=== PATIENT | female | born 1950 | race African-American/Black ===

== ENCOUNTER 2017-12-05 15:25 | Observation (INO) | payer MEDICARE, OTHER ==
[2017-12-05] MEDS ORDERED: NITROGLYCERIN OINT 1 INCH/GM PACKET TOPICAL STA (15:37)
[2017-12-05] MEDS ORDERED: ASPIRIN 81 MG PO STA (15:37)
--- NOTE | 2017-12-05 15:40 | ED ---
General Adult HPI - General Chief complaint: Chest Pain Stated complaint: Chest Pain Time Seen by Provider: 12/05/17 15:29 Source: patient, EMS, RN notes reviewed Mode of arrival: EMS Limitations: no limitations - History of Present Illness Initial comments: Patient is a pleasant 67-year-old female presenting to the emergency Department with chest discomfort. Symptoms have been present the past couple of days. Patient has a difficult time describing discomfort. Discomfort is left chest. Patient has been coughing some. Patient denies any dyspnea to me despite being asked more than once. No nausea. No diaphoresis. No history of similar symptoms previously. Patient is currently at [place] for history of cocaine use. Patient has used cocaine intermittently over 30 years. - Related Data Home Medications Medication Instructions Recorded Confirmed Acetaminophen [Tylenol] 650 mg PO Q4H PRN 12/05/17 12/05/17 Aspirin EC [Ecotrin Low Dose] 81 mg PO DAILY@0600 12/05/17 12/05/17 Cetirizine HCl [Zyrtec] 10 mg PO DAILY@0600 12/05/17 12/05/17 Citalopram Hydrobromide [CeleXA] 40 mg PO DAILY@0600 12/05/17 12/05/17 Gabapentin [Neurontin] 300 mg PO TID@,12/05/17 12/05/17 Ibuprofen [Motrin] 600 mg PO Q6HR PRN 12/05/17 12/05/17 Magnesium Hydroxide [Milk of 2,400 mg PO DAILY PRN 12/05/17 12/05/17 Magnesia] Metoprolol Succinate [Toprol XL] 25 mg PO DAILY@0600 12/05/17 12/05/17 OLANZapine [ZyPREXA] 15 mg PO HS@219912/05/17 12/05/17 Potassium Chloride [K-Tab ER] 20 meq PO DAILY@0600 12/05/17 12/05/17 Simvastatin 40 mg PO HS@22012/05/17 12/05/17 Spironolactone-Hctz 25-25Mg 1 tab PO DAILY PRN 12/05/17 12/05/17 [Aldactazide 25-25Mg] busPIRone HCl [Buspar] 10 mg PO TID PRN 12/05/17 12/05/17 guaiFENesin [guaiFENesin Oral 200 mg PO Q4H PRN 12/05/17 12/05/17 Solution] traZODone HCL 50 - 100 mg PO HS 12/05/17 12/05/17 Allergies Allergy/AdvReac Type Severity Reaction Status Date / Time No Known Allergies Allergy Unverified 12/05/17 15:35 Review of Systems ROS Statement: Those systems with pertinent positive or pertinent negative responses have been documented in the HPI. ROS Other: All systems not noted in ROS Statement are negative. Constitutional: Denies: fever Eyes: Denies: eye pain ENT: Denies: ear pain Respiratory: Reports: cough. Denies: dyspnea Cardiovascular: Reports: chest pain Endocrine: Denies: fatigue Gastrointestinal: Denies: abdominal pain Genitourinary: Denies: dysuria Musculoskeletal: Denies: back pain Skin: Denies: rash Neurological: Denies: weakness Past Medical History Past Medical History: COPD, Fibromyalgia, Hyperlipidemia Additional Past Medical History / Comment(s): degenerative disc disease History of Any Multi-Drug Resistant Organisms: None Reported Past Surgical History: Hysterectomy Additional Past Surgical History / Comment(s): hemerrhoidectomy Past Psychological History: Bipolar, Depression Smoking Status: Current every day smoker Past Alcohol Use History: None Reported Past Drug Use History: Cocaine, Heroin, Prescription Drug Abuse General Exam Limitations: no limitations General appearance: alert, in no apparent distress Head exam: Present: atraumatic Eye exam: Present: normal appearance, PERRL ENT exam: Present: normal oropharynx Neck exam: Present: normal inspection Respiratory exam: Present: normal lung sounds bilaterally. Absent: chest wall tenderness Cardiovascular Exam: Present: regular rate, normal rhythm Expanded Peripheral pulses: 2+: Radial (R), Radial (L), Posterior Tibialis (R), Posterior Tibialis (L) GI/Abdominal exam: Present: soft. Absent: distended, tenderness Extremities exam: Present: normal inspection. Absent: pedal edema, calf tenderness Neurological exam: Present: alert Psychiatric exam: Present: normal affect, normal mood Skin exam: Present: normal color Course Vital Signs 12/05/17 12/05/17 15:27 16:05 Temperature 99.2 F Pulse Rate 85 72 Respiratory 18 18 Rate Blood Pressure 104/55 104/55 O2 Sat by Pulse 98 98 Oximetry EKG Findings - EKG Comments: EKG Findings:: Normal sinus rhythm 75. GA 152. QRS 74. QT 372. QTC 4:15. Normal axis. Normal QRS. Nonspecific T waves. Medical Decision Making - Medical Decision Making Patient reevaluated and resting comfortably in bed. Patient updated on results and plan. Case was discussed in detail with Dr. Li, who will admit for hospital call. - Lab Data Result diagrams: 12/05/17 15:30 12/05/17 15:30 Lab Results 12/05/17 12/05/17 12/05/17 Range/Units 15:30 15:30 15:30 WBC 2.1 L (3.8-10.6) k/uL RBC 3.61 L (3.80-5.40) m/uL Hgb 11.3 L (11.4-16.0) gm/dL Hct 34.4 (34.0-46.0) % MCV 95.4 (80.0-100.0) fL MCH 31.4 (25.0-35.0) pg MCHC 32.9 (31.0-37.0) g/dL RDW 12.4 (11.5-15.5) % Plt Count 151 (150-450) k/uL Neutrophils % 45 % Lymphocytes % 39 % Monocytes % 10 % Eosinophils % 3 % Basophils % 1 % Neutrophils # 1.0 L (1.3-7.7) k/uL Lymphocytes # 0.8 L (1.0-4.8) k/uL Monocytes # 0.2 (0-1.0) k/uL Eosinophils # 0.1 (0-0.7) k/uL Basophils # 0.0 (0-0.2) k/uL PT (9.0-12.0) sec INR (<1.2) APTT (22.0-30.0) sec D-Dimer (<0.60) mg/L FEU Sodium 140 (137-145) mmol/L Potassium 4.2 (3.5-5.1) mmol/L Chloride 108 H (98-107) mmol/L Carbon Dioxide 24 (22-30) mmol/L Anion Gap 8 mmol/L BUN 22 H (7-17) mg/dL Creatinine 0.61 (0.52-1.04) mg/dL Est GFR (CKD-EPI)AfAm >90 (>60 ml/min/1.73 sqM) Est GFR (CKD-EPI)NonAf >90 (>60 ml/min/1.73 sqM) Glucose 90 (74-99) mg/dL Calcium 9.2 (8.4-10.2) mg/dL Magnesium 1.8 (1.6-2.3) mg/dL Total Bilirubin 0.1 L (0.2-1.3) mg/dL AST 20 (14-36) U/L ALT 29 (9-52) U/L Alkaline Phosphatase 55 (38-126) U/L Total Creatine Kinase 89 (30-135) U/L CK-MB (CK-2) 1.9 (0.0-2.4) ng/mL CK-MB (CK-2) Rel Index 2.1 Troponin I <0.012 (0.000-0.034) ng/mL Total Protein 6.1 L (6.3-8.2) g/dL Albumin 3.7 (3.5-5.0) g/dL 12/05/17 Range/Units 15:30 WBC (3.8-10.6) k/uL RBC (3.80-5.40) m/uL Hgb (11.4-16.0) gm/dL Hct (34.0-46.0) % MCV (80.0-100.0) fL MCH (25.0-35.0) pg MCHC (31.0-37.0) g/dL RDW (11.5-15.5) % Plt Count (150-450) k/uL Neutrophils % % Lymphocytes % % Monocytes % % Eosinophils % % Basophils % % Neutrophils # (1.3-7.7) k/uL Lymphocytes # (1.0-4.8) k/uL Monocytes # (0-1.0) k/uL Eosinophils # (0-0.7) k/uL Basophils # (0-0.2) k/uL PT 9.9 (9.0-12.0) sec INR 1.0 (<1.2) APTT 30.0 (22.0-30.0) sec D-Dimer 0.47 (<0.60) mg/L FEU Sodium (137-145) mmol/L Potassium (3.5-5.1) mmol/L Chloride (98-107) mmol/L Carbon Dioxide (22-30) mmol/L Anion Gap mmol/L BUN (7-17) mg/dL Creatinine (0.52-1.04) mg/dL Est GFR (CKD-EPI)AfAm (>60 ml/min/1.73 sqM) Est GFR (CKD-EPI)NonAf (>60 ml/min/1.73 sqM) Glucose (74-99) mg/dL Calcium (8.4-10.2) mg/dL Magnesium (1.6-2.3) mg/dL Total Bilirubin (0.2-1.3) mg/dL AST (14-36) U/L ALT (9-52) U/L Alkaline Phosphatase (38-126) U/L Total Creatine Kinase (30-135) U/L CK-MB (CK-2) (0.0-2.4) ng/mL CK-MB (CK-2) Rel Index Troponin I (0.000-0.034) ng/mL Total Protein (6.3-8.2) g/dL Albumin (3.5-5.0) g/dL - Radiology Data Radiology results: image reviewed (Chest x-ray shows no acute process) Disposition Clinical Impression: Chest pain Disposition: ADMITTED IP TO THIS [facility] Referrals: Nonstaff,Physician [Primary Care Provider] - 1-2 days Decision Time: 16:51
[2017-12-05 16:08] LABS: Basophils % (A) 1 %; Eosinophils # (A) 0.1 k/uL (0-0.7); Eosinophils % (A) 3 %; HCT 34.4 % (34.0-46.0); HGB 11.3 gm/dL (11.4-16.0); Lymphocytes # (A) 0.8 k/uL (1.0-4.8); Lymphocytes % (A) 39 %; MCH 31.4 pg (25.0-35.0); MCHC 32.9 g/dL (31.0-37.0); MCV 95.4 fL (80.0-100.0); Mean Platelet Volume 7.2; Monocytes # (A) 0.2 k/uL (0-1.0); Monocytes % (A) 10 %; Neutrophils % (A) 45 %; Platelet Count 151 k/uL (150-450); RBC 3.61 m/uL (3.80-5.40); RDW 12.4 % (11.5-15.5); WBC 2.1 k/uL (3.8-10.6)
[2017-12-05 16:22] LABS: ALT 29 U/L (9-52); AST 20 U/L (14-36); Albumin 3.7 g/dL (3.5-5.0); Alkaline Phosphatase 55 U/L (38-126); Anion Gap 8 mmol/L; Blood Urea Nitrogen 22 mg/dL (7-17); Calcium 9.2 mg/dL (8.4-10.2); Carbon Dioxide 24 mmol/L (22-30); Chloride 108 mmol/L (98-107); Glucose 90 mg/dL (74-99); Magnesium 1.8 mg/dL (1.6-2.3); Potassium 4.2 mmol/L (3.5-5.1); Sodium 140 mmol/L (137-145); Total Bilirubin 0.1 mg/dL (0.2-1.3); Total Protein 6.1 g/dL (6.3-8.2)
[2017-12-05 16:23] LABS: Creatine Kinase 89 U/L (30-135)
[2017-12-05 16:25] LABS: D-Dimer 0.47 mg/L FEU (<0.60)
[2017-12-05 16:29] LABS: Prothrombin Time 9.9 sec (9.0-12.0)
[2017-12-05 16:34] LABS: Creatine Kinase MB 1.9 ng/mL (0.0-2.4); Troponin I <0.012 ng/mL (0.000-0.034)
--- NOTE | 2017-12-05 16:38 | XR ---
EXAMINATION TYPE: XR chest 2V DATE OF EXAM: 12/05/2017 COMPARISON: NONE HISTORY: Chest pain TECHNIQUE: Frontal and lateral views of the chest are obtained. FINDINGS: There is no focal air space opacity, pleural effusion, or pneumothorax seen. The cardiac silhouette size is within normal limits. The osseous structures are intact. IMPRESSION: No acute cardiopulmonary process.
[2017-12-05] MEDS ORDERED: NITROGLYCERIN SL TABS 0.4 MG TAB SUBLINGUAL PRN (16:51)
[2017-12-05] MEDS ORDERED: ACETAMINOPHEN TAB 325 MG TAB PO PRN (17:41)
[2017-12-05] MEDS ORDERED: IBUPROFEN 400 MG TAB PO PRN (17:41)
[2017-12-05] MEDS ORDERED: NALOXONE 0.4 MG/ML 1 ML VIAL IV PRN (17:41)
[2017-12-05] MEDS ORDERED: SPIRONOLACTONE-HCTZ 25-25MG 1 EACH TAB PO PRN (17:43)
[2017-12-05] MEDS ORDERED: guaiFENesin SYRUP 100MG/5ML 200 MG/10 ML CUP PO PRN (17:43)
[2017-12-05] MEDS ORDERED: busPIRone HCl 10 MG TAB PO PRN (17:43)
[2017-12-05] MEDS ORDERED: MAGNESIUM HYDROXIDE 2,400 MG/10 ML CUP PO PRN (17:43)
--- NOTE | 2017-12-05 17:53 | P.HPIM ---
History of Present Illness H&P Date: 12/05/17 Chief Complaint: Chest pain 67-year-old female presented to the emergency department with chest discomfort , the pain occurred today when patient was resting. Pain was described as a sharp pain is located on the left side of the chest, no radiation. No associated shortness of breath, no nausea. no diaphoresis. No history of similar symptoms previously. Patient is currently at [place] for history of cocaine use. Last time used was November 22. Patient has used cocaine intermittently over 30 years. When I met with the patient she was asking to go back to [place] because she does not think that the pain would come back. I told her that we need to observe her for a little longer to make sure that the pain is not cardiac. No recent illness, no fevers or chills, no urinary symptoms, no slurred speech, blurry vision, no focal weakness or numbness. Review of Systems 12 point review of system was performed, negative except for HPI Past Medical History Past Medical History: COPD, Fibromyalgia, Hyperlipidemia Additional Past Medical History / Comment(s): degenerative disc disease History of Any Multi-Drug Resistant Organisms: None Reported Past Surgical History: Hysterectomy Additional Past Surgical History / Comment(s): hemerrhoidectomy Past Psychological History: Bipolar, Depression Smoking Status: Current every day smoker Past Alcohol Use History: None Reported Past Drug Use History: Cocaine, Heroin, Prescription Drug Abuse Medications and Allergies Home Medications Medication Instructions Recorded Confirmed Type Acetaminophen [Tylenol] 650 mg PO Q4H PRN 12/05/17 12/05/17 History Aspirin EC [Ecotrin Low Dose] 81 mg PO DAILY@0600 12/05/17 12/05/17 History Cetirizine HCl [Zyrtec] 10 mg PO DAILY@0600 12/05/17 12/05/17 History Citalopram Hydrobromide [CeleXA] 40 mg PO DAILY@0600 12/05/17 12/05/17 History Gabapentin [Neurontin] 300 mg PO TID@,15,12/05/17 12/05/17 History Ibuprofen [Motrin] 600 mg PO Q6HR PRN 12/05/17 12/05/17 History Magnesium Hydroxide [Milk of 2,400 mg PO DAILY PRN 12/05/17 12/05/17 History Magnesia] Metoprolol Succinate [Toprol XL] 25 mg PO DAILY@0600 12/05/17 12/05/17 History OLANZapine [ZyPREXA] 15 mg PO HS@0 12/05/17 12/05/17 History Potassium Chloride [K-Tab ER] 20 meq PO DAILY@0600 12/05/17 12/05/17 History Simvastatin 40 mg PO HS@2200 12/05/17 12/05/17 History Spironolactone-Hctz 25-25Mg 1 tab PO DAILY PRN 12/05/17 12/05/17 History [Aldactazide 25-25Mg] busPIRone HCl [Buspar] 10 mg PO TID PRN 12/05/17 12/05/17 History guaiFENesin [guaiFENesin Oral 200 mg PO Q4H PRN 12/05/17 12/05/17 History Solution] traZODone HCL 50 - 100 mg PO HS 12/05/17 12/05/17 History Allergies Allergy/AdvReac Type Severity Reaction Status Date / Time No Known Allergies Allergy Unverified 12/05/17 15:35 Physical Exam Vitals: Vital Signs Temp Pulse Resp BP Pulse Ox 12/05/17 17:20 98 F 72 16 114/68 96 12/05/17 16:05 72 18 110/62 98 12/05/17 15:27 99.2 F 85 18 104/55 98 Intake and Output 12/05/17 12/05/17 12/05/17 06:59 14:59 22:59 Other: Weight 61.235 kg Constitutional: No acute distress, conversant, pleasant Eyes:Anicteric sclerae, moist conjunctiva, no lid-lag, PERRLA, ENMT: Oropharynx clear, no erythema, exudates Neck: Supple, FROM, no masses, or JVD, No carotid bruits, No thyromegaly Lungs: Clear to auscultation, Clear to percussion, Normal respiratory effort, no accessory muscle use Cardiovascular: Heart regular in rate and rhythm, No murmurs, gallops, or rubs, No peripheral edema Abdominal: Soft, Nontender, no guarding, rebound or rigidity, Normoactive bowel sounds, No hepatomegaly, No splenomegaly, No palpable mass Skin: Normal temperature, tone, texture, turgor, no induration, No subcutaneous nodules, No rash, lesions, No ulcers Extremities: No digital cyanosis, No clubbing, Pedal pulses intact and symmetrical, Radial pulses intact and symmetrical, No calf tenderness Psychiatric: Alert and oriented to person, place and time, appropriate affect, intact judgement Neuro: Muscles Strength 5/5 in all 4 extremities, Sensation to light touch grossly present throughout, Cranial nerves II-XII grossly intact, no focal sensory deficits Results CBC & Chem 7: 12/05/17 15:30 12/05/17 15:30 Labs: Abnormal Lab Results - Last 24 Hours (Table) 12/05/17 12/05/17 Range/Units 15:30 15:30 WBC 2.1 L (3.8-10.6) k/uL RBC 3.61 L (3.80-5.40) m/uL Hgb 11.3 L (11.4-16.0) gm/dL Neutrophils # 1.0 L (1.3-7.7) k/uL Lymphocytes # 0.8 L (1.0-4.8) k/uL Chloride 108 H (98-107) mmol/L BUN 22 H (7-17) mg/dL Total Bilirubin 0.1 L (0.2-1.3) mg/dL Total Protein 6.1 L (6.3-8.2) g/dL Assessment and Plan Plan: Acute chest pain: Unclear etiology, can be musculoskeletal vs cardiac Tylenol and motrin for pain. Telemetry Cycle troponins Consult cardiology COPD, fibromyalgia, hyperlipidemia, degenerative disc disease, Bipolar, Depression: Chronic Continue all medications
[2017-12-05] MEDS: NITROGLYCERIN OINT 1 INCH/GM PACKET TOPICAL SCH (18:03)
[2017-12-05 18:21] VITALS: BMI 22.1
[2017-12-05] MEDS: ATORVASTATIN 20 MG TAB PO SCH (20:30)
[2017-12-05] MEDS: OLANZapine 5 MG TAB PO SCH (20:30)
[2017-12-05] MEDS: GABAPENTIN 300 MG CAP PO SCH (20:30)
[2017-12-05 22:30] LABS: Creatine Kinase 72 U/L (30-135)
[2017-12-05 22:44] LABS: Creatine Kinase MB 1.6 ng/mL (0.0-2.4); Troponin I <0.012 ng/mL (0.000-0.034)
[2017-12-06 04:34] LABS: Cholesterol 156 mg/dL (<200); HDL Cholesterol 51 mg/dL (40-60); LDL Cholesterol,Calculated 88 mg/dL (0-99); Triglycerides 86 mg/dL (<150)
[2017-12-06 04:43] LABS: Creatine Kinase 66 U/L (30-135)
[2017-12-06 04:58] LABS: Creatine Kinase MB 1.5 ng/mL (0.0-2.4); Troponin I <0.012 ng/mL (0.000-0.034)
[2017-12-06] MEDS: NITROGLYCERIN OINT 1 INCH/GM PACKET TOPICAL SCH ×4 (06:58→18:33)
[2017-12-06] MEDS: POTASSIUM CHLORIDE ER 20 MEQ TAB.ER PO SCH (07:03)
[2017-12-06] MEDS: METOPROLOL SUCCINATE (ER) 25 MG TAB.ER.24H PO SCH (07:03)
[2017-12-06] MEDS: LORATADINE 10 MG TAB PO SCH (07:05)
[2017-12-06] MEDS: GABAPENTIN 300 MG CAP PO SCH ×3 (07:05→21:47)
[2017-12-06] MEDS: CITALOPRAM HYDROBROMIDE 20 MG TAB PO SCH (07:05)
[2017-12-06] MEDS: ASPIRIN 81 MG PO SCH (07:05)
[2017-12-06] MEDS ORDERED: ASPIRIN 325 MG TAB PO SCH (09:00)
--- NOTE | 2017-12-06 12:28 | P.PN ---
Subjective Progress Note Date: 12/06/17 Principal diagnosis: CP Patient did not have any chest pain since she came in. No shortness of breath. Objective - Vital Signs Vital signs: Vital Signs Temp 97.8 F 12/06/17 08:00 Pulse 73 12/06/17 08:00 Resp 14 12/06/17 08:00 BP 114/71 12/06/17 08:00 Pulse Ox 95 12/06/17 08:00 Intake & Output 12/05/17 12/06/17 12/06/17 18:59 06:59 18:59 Weight 64.1 kg 64.1 kg Other: Voiding Method Toilet Toilet # Voids 1 - Exam Constitutional: No acute distress, conversant, pleasant Eyes:Anicteric sclerae, moist conjunctiva, no lid-lag, PERRLA, ENMT: Oropharynx clear, no erythema, exudates Neck: Supple, FROM, no masses, or JVD, No carotid bruits, No thyromegaly Lungs: Clear to auscultation, Clear to percussion, Normal respiratory effort, no accessory muscle use Cardiovascular: Heart regular in rate and rhythm, No murmurs, gallops, or rubs, No peripheral edema Abdominal: Soft, Nontender, no guarding, rebound or rigidity, Normoactive bowel sounds, No hepatomegaly, No splenomegaly, No palpable mass Skin: Normal temperature, tone, texture, turgor, no induration, No subcutaneous nodules, No rash, lesions, No ulcers Extremities: No digital cyanosis, No clubbing, Pedal pulses intact and symmetrical, Radial pulses intact and symmetrical, No calf tenderness Psychiatric: Alert and oriented to person, place and time, appropriate affect, intact judgement Neuro: Muscles Strength 5/5 in all 4 extremities, Sensation to light touch grossly present throughout, Cranial nerves II-XII grossly intact, no focal sensory deficits - Labs CBC & Chem 7: 12/05/17 15:30 12/05/17 15:30 Labs: Abnormal Lab Results - Last 24 Hours (Table) 12/05/17 12/05/17 Range/Units 15:30 15:30 WBC 2.1 L (3.8-10.6) k/uL RBC 3.61 L (3.80-5.40) m/uL Hgb 11.3 L (11.4-16.0) gm/dL Neutrophils # 1.0 L (1.3-7.7) k/uL Lymphocytes # 0.8 L (1.0-4.8) k/uL Chloride 108 H (98-107) mmol/L BUN 22 H (7-17) mg/dL Total Bilirubin 0.1 L (0.2-1.3) mg/dL Total Protein 6.1 L (6.3-8.2) g/dL Assessment and Plan Plan: Acute chest pain: Unclear etiology, can be musculoskeletal vs cardiac Seen by cardiology, plan for stress test and an echo in the morning. Patient wants to go back to [place] but I'm not sure if she is competent making her own decisions. Consult psychiatry Tylenol and motrin for pain. Telemetry Troponins cycled WNL COPD, fibromyalgia, hyperlipidemia, degenerative disc disease, Bipolar, Depression: Chronic Continue all medications
--- NOTE | 2017-12-06 12:38 | P.CRDCN ---
History of Present Illness Consult date: 12/06/17 Consult reason: chest pain History of present illness: Mrs. Dotson is a pleasant 67-year-old -L[place] female past medical history significant for cocaine abuse last used November 22, COPD, fibromyalgia, dyslipidemia and chronic tobacco abuse. We have been asked to see her in consultation for complaints of chest pain. She states the pain began last night while she was sitting down. The pain was sharp heavy sensation and radiated to the left precordial region mostly up into the axilla. The pain lasted for approximately 10-15 minutes with no specific aggravating or alleviating factors. She denies any radiation of the pain into the back neck shoulder jaw. She denies associated shortness of breath, dizziness, palpitations, diaphoresis, nausea or vomiting. She does states she has been coughing recently and bringing up thick sputum. She also has positive nasal drainage. The pain is not reproducible and is not worse when she takes a deep breath. EKG on arrival reveals sinus mechanism with nonspecific T-wave abnormalities. Chest x-ray negative for acute cardiopulmonary process. Laboratory data reviewed, WBC 2.1, hemoglobin 11.3, platelets 151, d-dimer 0.47 , potassium 4.2, magnesium 1.8, creatinine 0.61, cardiac enzymes negative 3, LDL 88. Current cardiac medications include aspirin 81 mg daily, Toprol 25 mg daily, potassium 20 daily, simvastatin 40 mg daily and spironolactone/ hydrochlorothiazide 25/25 mg daily as needed for lower extremity edema. Review of Systems At the time of my exam: CONSTITUTIONAL: Denies fever. Denies chills. EYES: Denies blurred vision. Denies vision changes. Denies eye pain. EARS, NOSE, MOUTH & THROAT: Denies headache. Denies sore throat. Denies ear pain. CARDIOVASCULAR: Denies chest pain. Denies shortness of breath. Denies orthopnea. Denies PND. Denies palpitations. RESPIRATORY: Complains of cough. GASTROINTESTINAL: Denies abdominal pain. Denies diarrhea. Denies constipation. Denies nausea. Denies vomiting. MUSCULOSKELETAL: Denies myalgias. INTEGUMENTARY: Denies pruitis. Denies rash. NEUROLOGIC: Denies numbness. Denies tingling. Denies weakness. PSYCHIATRIC: Denies anxiety. Denies depression. ENDOCRINE: Denies fatigue. Denies weight change. Denies polydipsia. Denies polyurina. GENITOURINARY: Denies burning, hematuria or urgency with micturation. HEMATOLOGIC: Denies history of anemia. Denies bleeding. Past Medical History Past Medical History: COPD, Fibromyalgia, Hyperlipidemia Additional Past Medical History / Comment(s): degenerative disc disease History of Any Multi-Drug Resistant Organisms: None Reported Past Surgical History: Hysterectomy Additional Past Surgical History / Comment(s): hemerrhoidectomy Past Anesthesia/Blood Transfusion Reactions: No Reported Reaction Past Psychological History: Bipolar, Depression Smoking Status: Current every day smoker Past Alcohol Use History: None Reported Past Drug Use History: Cocaine, Heroin, Prescription Drug Abuse - Past Family History Father Family Medical History: No Reported History Medications and Allergies Home Medications Medication Instructions Recorded Confirmed Type Acetaminophen [Tylenol] 650 mg PO Q4H PRN 12/05/17 12/05/17 History Aspirin EC [Ecotrin Low Dose] 81 mg PO DAILY@59912/05/17 12/05/17 History Cetirizine HCl [Zyrtec] 10 mg PO DAILY@59912/05/17 12/05/17 History Citalopram Hydrobromide [CeleXA] 40 mg PO DAILY@59912/05/17 12/05/17 History Gabapentin [Neurontin] 300 mg PO TID@12/05/17 12/05/17 History Ibuprofen [Motrin] 600 mg PO Q6HR PRN 12/05/17 12/05/17 History Magnesium Hydroxide [Milk of 2,400 mg PO DAILY PRN 12/05/17 12/05/17 History Magnesia] Metoprolol Succinate [Toprol XL] 25 mg PO DAILY@59912/05/17 12/05/17 History OLANZapine [ZyPREXA] 15 mg PO HS@219912/05/17 12/05/17 History Potassium Chloride [K-Tab ER] 20 meq PO DAILY@59912/05/17 12/05/17 History Simvastatin 40 mg PO HS@219912/05/17 12/05/17 History Spironolactone-Hctz 25-25Mg 1 tab PO DAILY PRN 12/05/17 12/05/17 History [Aldactazide 25-25Mg] busPIRone HCl [Buspar] 10 mg PO TID PRN 12/05/17 12/05/17 History guaiFENesin [guaiFENesin Oral 200 mg PO Q4H PRN 12/05/17 12/05/17 History Solution] traZODone HCL 50 - 100 mg PO HS 12/05/17 12/05/17 History Allergies Allergy/AdvReac Type Severity Reaction Status Date / Time No Known Allergies Allergy Unverified 12/05/17 15:35 Physical Exam Vitals: Vital Signs Temp Pulse Pulse Pulse Resp BP BP 12/06/17 05:58 98.5 F 89 18 105/72 12/06/17 04:00 16 12/06/17 00:21 98.5 F 67 16 96/62 12/06/17 00:00 16 12/05/17 21:56 98.5 F 66 16 92/55 12/05/17 20:00 57 L 16 12/05/17 17:20 98 F 72 16 114/68 12/05/17 17:15 98.6 F 71 16 110/74 12/05/17 16:05 72 18 110/62 12/05/17 15:27 99.2 F 85 18 104/55 Pulse Ox 12/06/17 05:58 95 12/06/17 04:00 12/06/17 00:21 97 12/06/17 00:00 12/05/17 21:56 98 12/05/17 20:00 12/05/17 17:20 96 12/05/17 17:15 98 12/05/17 16:05 98 12/05/17 15:27 98 Intake and Output 12/05/17 12/06/17 12/06/17 22:59 06:59 14:59 Other: Voiding Method Toilet Toilet # Voids 1 Weight 64.1 kg 64.1 kg Blood pressure 114/71 heart rate 73 afebrile maintaining oxygen saturation on room air GENERAL: This is a 67-year-old for Lithuanian female in no apparent distress at the time of my examination. HEENT: Head is atraumatic, normocephalic. Pupils are equal, round. Sclerae anicteric. Conjunctivae are clear. Mucous membranes of the mouth are moist. Neck is supple. There is no jugular venous distention. No carotid bruit is heard. LUNGS: Clear to auscultation no wheezes, rales or rhonchi. No chest wall tenderness is noted on palpation or with deep breathing. HEART: Regular rate and rhythm without murmurs, rubs or gallops. S1 and S2 heard. ABDOMEN: Soft, nontender. Bowel sounds are heard. No organomegaly noted. EXTREMITIES: No evidence of peripheral edema and no calf tenderness noted. VASCULAR: Radial and dorsalis pedis pulses palpated, no evidence of clubbing. NEUROLOGIC: Patient is awake, alert and oriented x3. Results 12/05/17 15:30 12/05/17 15:30 Cardiac Enzymes 12/05/17 12/05/17 12/05/17 Range/Units 15:30 15:30 21:43 AST 20 (14-36) U/L CK-MB (CK-2) 1.9 1.6 (0.0-2.4) ng/mL Troponin I <0.012 <0.012 (0.000-0.034) ng/mL 12/06/17 Range/Units 03:37 AST (14-36) U/L CK-MB (CK-2) 1.5 (0.0-2.4) ng/mL Troponin I <0.012 (0.000-0.034) ng/mL Coagulation 12/05/17 Range/Units 15:30 PT 9.9 (9.0-12.0) sec APTT 30.0 (22.0-30.0) sec Lipids 12/06/17 Range/Units 03:37 Triglycerides 86 (<150) mg/dL Cholesterol 156 (<200) mg/dL HDL Cholesterol 51 (40-60) mg/dL CBC 12/05/17 Range/Units 15:30 WBC 2.1 L (3.8-10.6) k/uL RBC 3.61 L (3.80-5.40) m/uL Hgb 11.3 L (11.4-16.0) gm/dL Hct 34.4 (34.0-46.0) % Plt Count 151 (150-450) k/uL Comprehensive Metabolic Panel 12/05/17 Range/Units 15:30 Sodium 140 (137-145) mmol/L Potassium 4.2 (3.5-5.1) mmol/L Chloride 108 H (98-107) mmol/L Carbon Dioxide 24 (22-30) mmol/L BUN 22 H (7-17) mg/dL Creatinine 0.61 (0.52-1.04) mg/dL Glucose 90 (74-99) mg/dL Calcium 9.2 (8.4-10.2) mg/dL AST 20 (14-36) U/L ALT 29 (9-52) U/L Alkaline Phosphatase 55 (38-126) U/L Total Protein 6.1 L (6.3-8.2) g/dL Albumin 3.7 (3.5-5.0) g/dL Current Medications Generic Name Dose Route Start Last Admin Trade Name Freq PRN Reason Stop Dose Admin Acetaminophen 650 mg 12/05/17 17:41 Tylenol Tab PO Q6HR PRN Mild Pain or Fever > 100.5 Aspirin 81 mg 12/06/17 06:00 12/06/17 07:05 Aspirin PO 81 mg DAILY@0600 [facility] Administration Atorvastatin Calcium 20 mg 12/05/17 22:00 12/05/17 20:30 Lipitor PO 20 mg HS@2200 [facility] Administration Buspirone HCl 10 mg 12/05/17 17:43 Buspar PO TID PRN Anxiety Citalopram Hydrobromide 40 mg 12/06/17 06:00 12/06/17 07:05 Celexa PO 40 mg DAILY@0600 [facility] Administration Gabapentin 300 mg 12/05/17 22:00 12/06/17 07:05 Neurontin PO 300 mg TID@ [facility] Administration Guaifenesin 200 mg 12/05/17 17:43 Robitussin PO Q4H PRN Cough HCTZ/Spironolactone 1 each 12/05/17 17:43 Aldactazide 25-25mg PO DAILY PRN Edema Ibuprofen 400 mg 12/05/17 17:41 Motrin PO Q6HR PRN Mild Pain or Fever > 100.5 Loratadine 10 mg 12/06/17 06:00 12/06/17 07:05 Claritin PO 10 mg DAILY@0600 [facility] Administration Magnesium Hydroxide 2,400 mg 12/05/17 17:43 Milk Of Magnesia PO DAILY PRN Constipation Metoprolol Succinate 25 mg 12/06/17 06:00 12/06/17 07:03 Toprol Xl PO 25 mg DAILY@0600 [facility] Administration Naloxone HCl 0.2 mg 12/05/17 17:41 Narcan IV Q2M PRN Opioid Reversal Nitroglycerin 1 inch 12/05/17 18:00 12/06/17 07:01 Nitro-Bid Oint TOPICAL Not Given Q6HR AZUCENA Nitroglycerin 0.4 mg 12/05/17 16:51 Nitrostat SUBLINGUAL Q5M PRN Chest Pain Olanzapine 15 mg 12/05/17 22:00 12/05/17 20:30 Zyprexa PO 15 mg HS@2200 [facility] Administration Potassium Chloride 20 meq 12/06/17 06:00 12/06/17 07:03 K-Dur 20 PO 20 meq DAILY@0600 AZUCENA Administration Sodium Chloride 10 ml 12/05/17 21:00 12/06/17 07:02 Saline Flush IV 10 ml BID AZUCENA Administration Intake and Output 12/05/17 12/06/17 12/06/17 22:59 06:59 14:59 Other: Voiding Method Toilet Toilet # Voids 1 Weight 64.1 kg 64.1 kg 12/05/17 15:30 12/05/17 15:30 Assessment and Plan Assessment: ASSESSMENT 1. Precordial chest pain, atypical. An acute coronary event has been ruled out with no EKG evidence of acute ischemia and negative cardiac enzymes. 2. Hypertension 3. Dyslipidemia 4. Chronic cocaine use 5. Chronic tobacco use PLAN Obtain 2-D echocardiogram and Doppler study to assess cardiac structure and function. Nothing by mouth after midnight tonight for stress echocardiogram in the morning to rule out stress-induced ischemia. Hold beta gerri in the morning. Further recommendations will be based upon diagnostic test findings. If the testing is negative she is stable from a cardiac perspective. Thank you kindly for this consultation. The above impression and plan of care have been discussed and directed by the signing physician. Autumn Bello, nurse practitioner, acting as scribe for signing physician.
--- NOTE | 2017-12-06 18:45 | P.CN ---
Psychiatric Consult - . Consult date: 12/06/17 Consult:: 12/06/17 18:34 IDENTIFYING DATA: 67-year-old -Bhutanese single female. HPI: Patient admitted to the observation unit at [facility] with complaints of chest pain. Psychiatry consultation ordered for issues regarding competency. Per her history is plans are for the patient to have a stress test with patient refusing and relating that she wants to go back to [place]. Patient states she was admitted for a little chest pain on her left side which lasted about 10-15 minutes. She states she never had this pain before, it started at [facility]. She says she was been at [facility] since November 23 and she was there for cocaine use. She says that rehab was going good. She is supposed to be there for 21 days. She does have the desire to go back. She does relate that they won't let her go back because they want to do a test. She says she doesn't need the test and feels like they are "milking her insurance." She relates she doesn't know why the doctor wants to do a stress test and she is not aware of the risks of not having the stress test done. We did discuss the reason for ordering a stress test as well as possible risk of not having a stress test done. At the end of the examination she does seem agreeable to having the stress test done. PAST PSYCHIATRIC HISTORY: She has a history of bipolar disorder. She sees a Dr. christian Ricci. She is currently on BuSpar, Celexa, Neurontin and Zyprexa. She has a history of a lot of inpatient psychiatric admissions as well as 10 suicide attempts by overdose. PMH: COPD, fibromyalgia, hyperlipidemia, degenerative disc disease ALLERGIES:No Known ALLERGIES MEDICATIONS: Tylenol when necessary, aspirin, Lipitor, BuSpar when necessary, Celexa, Neurontin, Robitussin when necessary, Aldactazide when necessary, Motrin when necessary, Claritin, milk of magnesia when necessary, Toprol-XL, Narcan when necessary, Habitrol patch, Nitro-Bid ointment, Nitrostat when necessary, Zyprexa, K Dur. She is able to name several of her medications. CHEMICAL DEPENDENCY HISTORY: Patient reports using cocaine about daily, heroin occasional use. She is currently at [facility] rehab for cocaine use. FAMILY PSYCHIATRIC HISTORY: Not known at this time FAMILY CHEMICAL DEPENDENCY HISTORY: None known at this time SOCIAL HISTORY: She currently lives by herself, she has never been . She has 1 child. She is on SSI. MENTAL STATUS EXAM: She is alert and cooperative with the interview. Her affect overall is restricted. She describes her mood as "pissed off because of the doctor." She denies any thoughts of harm to self or others. She does not show any active evidence of psychosis. She does not show any significant agitation. She is aware that the doctor wants to do a test, but is not able to relate why the doctor wants to do the test and is not able to relay the risks of not having the test done. She is oriented to place and month, says the date as the . IMPRESSIONS: Bipolar disorder by history; stimulant use disorder; rule out opioid use disorder PLAN: At this time the patient does not fully appear to be able to make informed decision. She is aware that the doctor wants to do a test but does not fully aware of why the test is being ordered and the risk of not having the test done. This may be ameliorated by further education. I did talk with the patient regarding the test and reason for ordering a stress test as well as possible risk of not having it done and at this time she seems agreeable to proceeding with the test. Would further educate the patient on reasons for ordering the stress test as well as risk of not having it done. I do not recommend any psychotropic medication changes at this point in time. She seems motivated to return to [facility] to continue her rehab treatment after further medical clearance.
[2017-12-06] MEDS: NICOTINE 14MG/24HR PATCH TRANSDERM SCH (18:58)
[2017-12-06] MEDS: ATORVASTATIN 20 MG TAB PO SCH (21:47)
[2017-12-06] MEDS: OLANZapine 5 MG TAB PO SCH (21:47)
[2017-12-07] MEDS: NITROGLYCERIN OINT 1 INCH/GM PACKET TOPICAL SCH (06:35)
[2017-12-07] MEDS: ASPIRIN 81 MG PO SCH (06:35)
[2017-12-07 08:01] VITALS: RESP 16
--- NOTE | 2017-12-07 10:18 | P.PN ---
Subjective Progress Note Date: 12/07/17 Mrs. Dotson is seen and examined today with myself and Dr. Shah. She is in no acute distress. Denies chest pain, shortness of breath, dizziness, palpitations , nausea, vomiting or diaphoresis. Telemetry tracings have been unremarkable. Blood pressure 102/65 heart rate 62 afebrile maintaining oxygen saturation on room air. Objective - Vital Signs Vital signs: Vital Signs Temp 97.9 F 12/07/17 07:59 Pulse 62 12/07/17 07:59 Resp 16 12/07/17 07:59 BP 102/65 12/07/17 07:59 Pulse Ox 96 12/07/17 07:59 Intake & Output 12/06/17 12/07/17 12/07/17 18:59 06:59 18:59 Weight 64.1 kg Other: Voiding Method Toilet Toilet # Voids 1 - Exam GENERAL: Well-appearing, well-nourished and in no acute distress. NECK: Supple without JVD or thyromegaly. LUNGS: Breath sounds clear to auscultation bilaterally. Respiration equal and unlabored. No wheezes, rales or rhonchi. HEART: Regular rate and rhythm without murmurs, rubs or gallops. S1 and S2 heard. EXTREMITIES: Normal range of motion, no edema. No clubbing or cyanosis. Peripheral pulses intact and strong. - Labs CBC & Chem 7: 12/05/17 15:30 12/05/17 15:30 Assessment and Plan Assessment: ASSESSMENT 1. Precordial chest pain, atypical. An acute coronary event has been ruled out with no EKG evidence of acute ischemia and negative cardiac enzymes. 2. Hypertension 3. Dyslipidemia 4. Chronic cocaine use 5. Chronic tobacco use PLAN Proceed with stress echocardiogram as was previously ordered. If above diagnostic testing is negative she is stable from a cardiac perspective. The above impression and plan of care have been discussed and directed by the signing physician. Autumn Bello, nurse practitioner, acting as scribe for signing physician.
[2017-12-07] MEDS ORDERED: DOBUTamine DRIP for NUC MED 250 MG in DEXTROSE/WATER 1 250ML.BAG IV ONE (12:15)
[2017-12-07 12:25] VITALS: BP 103/62; PULSE 58; TEMP 98.4
[2017-12-07] MEDS ORDERED: ATROPINE SULFATE 0.1 MG/ML 10ML SYRINGE ONE (13:07)
[2017-12-07] MEDS: LORATADINE 10 MG TAB PO SCH (13:57)
[2017-12-07] MEDS: POTASSIUM CHLORIDE ER 20 MEQ TAB.ER PO SCH (13:57)
[2017-12-07] MEDS: GABAPENTIN 300 MG CAP PO SCH ×2 (13:57→14:25)
[2017-12-07] MEDS: CITALOPRAM HYDROBROMIDE 20 MG TAB PO SCH (13:57)
[2017-12-07] MEDS: METOPROLOL SUCCINATE (ER) 25 MG TAB.ER.24H PO SCH (13:57)
[2017-12-07] MEDS: NICOTINE 14MG/24HR PATCH TRANSDERM SCH (13:58)
--- NOTE | 2017-12-07 14:25 | P.DS ---
Providers Date of admission: 12/05/17 16:51 Expected date of discharge: 12/07/17 Attending physician: Jeff Lu MD Consults: 12/05/17 16:51 Consult Physician Urgent Consulting Provider: Burton Winston Consult Reason/Comments: cp Do you want consulting provider notified?: Yes 12/06/17 11:25 Consult Physician Urgent Consulting Provider: Carlos Benitez Consult Reason/Comments: decision making capacity? Do you want consulting provider notified?: Yes Primary care physician: Physician Nonsta Hospital Course: 67-year-old female presented to the emergency department with chest discomfort , the pain occurred when patient was resting. Pain was described as a sharp pain is located on the left side of the chest, no radiation. No associated shortness of breath, no nausea. no diaphoresis. No history of similar symptoms previously. Patient is currently at [facility] for history of cocaine use. Last time used was November 22. Patient has used cocaine intermittently over 30 years. When I met with the patient she was asking to go back to [facility] because she does not think that the pain would come back. I told her that we need to observe her for a little longer to make sure that the pain is not cardiac. No recent illness, no fevers or chills, no urinary symptoms, no slurred speech, blurry vision, no focal weakness or numbness. In the emergency department her vital signs are all within normal limits and her laboratory findings were all unremarkable. Patient was admitted for observation. Troponins were cycled and they were within normal limits. She did not have any recurrent chest pain during the hospitalization. She was seen in consultation with cardiology. A dobutamine stress echocardiogram was done and that came back within normal limits. Patient will be discharged to [facility] in a stable condition. Patient needs to follow-up with her primary care physician as well as Dr. Winston in 1 week. Plan - Discharge Summary Discharge Rx Participant: No New Discharge Prescriptions: New Acetaminophen Tab [Tylenol] 650 mg PO Q6HR PRN tab PRN Reason: Mild Pain Or Fever > 100.5 Continue Simvastatin 40 mg PO HS@2200 Cetirizine HCl [Zyrtec] 10 mg PO DAILY@0600 guaiFENesin [guaiFENesin Oral Solution] 200 mg PO Q4H PRN PRN Reason: Cough Potassium Chloride [K-Tab ER] 20 meq PO DAILY@0600 Magnesium Hydroxide [Milk of Magnesia] 2,400 mg PO DAILY PRN PRN Reason: Constipation traZODone HCL 50 - 100 mg PO HS Spironolactone-Hctz 25-25Mg [Aldactazide 25-25 MG] 1 tab PO DAILY PRN PRN Reason: Edema Ibuprofen [Motrin] 600 mg PO Q6HR PRN PRN Reason: Pain Acetaminophen [Tylenol] 650 mg PO Q4H PRN PRN Reason: Pain Or Fever > 100.5 busPIRone HCl [Buspar] 10 mg PO TID PRN PRN Reason: Anxiety Gabapentin [Neurontin] 300 mg PO TID@ Citalopram Hydrobromide [CeleXA] 40 mg PO DAILY@06 Metoprolol Succinate [Toprol XL] 25 mg PO DAILY@06 Aspirin EC [Ecotrin Low Dose] 81 mg PO DAILY@599 OLANZapine [ZyPREXA] 15 mg PO HS@2199 Discharge Medication List Acetaminophen [Tylenol] 650 mg PO Q4H PRN 12/05/17 [History] Aspirin EC [Ecotrin Low Dose] 81 mg PO DAILY@59912/05/17 [History] Cetirizine HCl [Zyrtec] 10 mg PO DAILY@59912/05/17 [History] Citalopram Hydrobromide [CeleXA] 40 mg PO DAILY@59912/05/17 [History] Gabapentin [Neurontin] 300 mg PO TID@12/05/17 [History] Ibuprofen [Motrin] 600 mg PO Q6HR PRN 12/05/17 [History] Magnesium Hydroxide [Milk of Magnesia] 2,400 mg PO DAILY PRN 12/05/17 [History] Metoprolol Succinate [Toprol XL] 25 mg PO DAILY@59912/05/17 [History] OLANZapine [ZyPREXA] 15 mg PO HS@219912/05/17 [History] Potassium Chloride [K-Tab ER] 20 meq PO DAILY@0600 12/05/17 [History] Simvastatin 40 mg PO HS@219912/05/17 [History] Spironolactone-Hctz 25-25Mg [Aldactazide 25-25 MG] 1 tab PO DAILY PRN 12/05/17 [ History] busPIRone HCl [Buspar] 10 mg PO TID PRN 12/05/17 [History] guaiFENesin [guaiFENesin Oral Solution] 200 mg PO Q4H PRN 12/05/17 [History] traZODone HCL 50 - 100 mg PO HS 12/05/17 [History] Acetaminophen Tab [Tylenol] 650 mg PO Q6HR PRN tab 12/07/17 [Rx] Follow up Appointment(s)/Referral(s): Burton Winston MD [STAFF PHYSICIAN] - 1 Week (Follow up appointment is on December 29 at 4pm) Harjeet Solomon MD [STAFF PHYSICIAN] - 1 Week
--- NOTE | 2017-12-07 16:04 | ECHOS ---
STRESS ECHOCARDIOGRAM INDICATIONS: Chest pain. MEDICATIONS: BASELINE HEART RATE: 67 BASELINE BLOOD PRESSURE: 86/51 MAXIMUM HEART RATE: 136 MAXIMUM BLOOD PRESSURE: 135/54 85% MPHR: 130 100% MPHR: 153 METS: MAXIMUM STAGE REACHED: III TOTAL EXERCISE TIME: 10:00 CLINICAL INFORMATION: Baseline EKG revealed normal sinus rhythm with inferolateral nonspecific ST-T changes. With dobutamine administration as per protocol, heart rate went up to 136 beats per minute, which is more than 85% of predicted maximum. Patient did not have any angina or arrhythmia. EKG remained inconclusive with nonspecific ST-segment changes. No arrhythmia was noted. By EKG criteria, this is considered as an unremarkable dobutamine stress test. Baseline echo images revealed normal wall motion and wall thickening of all segments. With dobutamine administration, there was progressive increase in contractility involving all segments, suggesting that there is no evidence of stress-induced ischemia on this study. FINAL IMPRESSION: 1. By EKG criteria, this is an inconclusive dobutamine stress test because of minor resting EKG changes. 2. Normal dobutamine stress echocardiogram without any evidence of stress-induced ischemia. MMODL / IJN: [id number] /
== END 2017-12-07 15:35 | disposition home or self-care (01) ==
LOC: EC 15:25 → 3OBS 16:51
PROVIDERS: ADMIT Internal Medicine; ATTEND Internal Medicine
DX: R07.2 Precordial pain (principal); R07.89 Other chest pain; R05 Cough; F14.10 Cocaine abuse, uncomplicated; F11.10 Opioid abuse, uncomplicated; F31.9 Bipolar disorder, unspecified; I10 Essential (primary) hypertension; E78.5 Hyperlipidemia, unspecified; M79.7 Fibromyalgia; J44.9 Chronic obstructive pulmonary disease, unspecified; F17.200 Nicotine dependence, unspecified, uncomplicated; Z79.899 Other long term (current) drug therapy; Z79.82 Long term (current) use of aspirin; Z91.5 Personal history of self-harm
CPT/HCPCS: 99285; 36415; 93005; 93017; 93350; 85379; 80061; 80053; 82550 ×2; 82553 ×2; 83735; 84484 ×2; 85025; 85610; 85730; 71046; G0378 ×3; S4990 ×2; J0461; J1250; 93306